=== PATIENT | female | born 1935 | race Caucasian/White ===

== ENCOUNTER 2016-04-06 06:08 | Emergency (ER) | payer OTHER ==
[~2016-04-06] VITALS: Ht 154.9 cm; Wt 80.2 kg
[~2016-04-06 06:08] MED LIST: LEVOTHYROXINE75 MCG PO; PROTONIX40 MG PO
[2016-04-06] MEDS ORDERED: FLEXERIL10 MG PO (08:33)
[2016-04-06] MEDS ORDERED: TYLENOL WITH C1 EACH PO (08:33)
[2016-04-06 09:05] VITALS: BP 145/71
== END 2016-04-06 09:08 | disposition home or self-care (01) ==
LOC: EME 06:08
DX: M54.42 Lumbago with sciatica, left side (principal); M19.90 Unspecified osteoarthritis, unspecified site; E78.5 Hyperlipidemia, unspecified; E03.9 Hypothyroidism, unspecified
CPT/HCPCS: 72100; 99281; 99283

== ENCOUNTER 2017-02-26 08:11 | Observation (INO) | payer OTHER ==
[~2017-02-26] VITALS: Ht 152.4 cm; Wt 80.7 kg
[~2017-02-26 08:11] MED LIST changes: +CALICUM 500+D1 EACH PO; +FLEXERIL10 MG PO; +PANTOTHENIC AC500 MG PO; +PROZAC10 MG PO; +RED YEAST RICE600 MG PO; +TYLENOL WITH C1 EACH PO; +VITAMIN D-32000 UNI2 PO
[2017-02-26 08:58] LABS: EOSINOPHIL (%) 2.4 % (0-5); EOSINOPHIL COUNT 0.2 K/uL (0-0.3); HEMATOCRIT 40.9 % (36.0-46.0); IMMATURE GRANULOCYTE (%) 0.3 % (0.0-0.7); INSTRUMENT ABS NEUTROPHIL CT 4.6 K/uL; MCH 31.4 PG (29.0-34.0); MCHC 33.5 G/DL (30.0-36.0); MCV 93.8 FL (83-99); MEAN PLAT.VOLUME 10.3 uM^3 (9.5-12.4); MONOCYTE (%) 6.6 % (3-12); MONOCYTE COUNT 0.4 K/uL (0-0.8); NEUTROPHIL (%) 73.8 % (45-76); NEUTROPHIL COUNT 4.6 K/uL (1.8-6.4); PLATELET COUNT 180 K/uL (156-360); RBC DIS.WIDTH-CV 13.2 % (11.8-14.6); RBC DIS.WIDTH-SD 45.4 % (39-53); RED BLOOD COUNT 4.36 M/uL (3.80-5.20); WHITE BLOOD COUNT 6.2 K/uL (4.1-10.2)
[2017-02-26 09:07] LABS: CHLORIDE 105 mEq/L (99-109)
[2017-02-26 09:08] LABS: POTASSIUM 3.7 mEq/L (3.7-5.4); SODIUM 138 mEq/L (136-147)
[2017-02-26 09:10] LABS: GLUCOSE 121 mg/dL (70-99)
[2017-02-26 09:11] LABS: ANION GAP 7 MEQ/L (2-14)
[2017-02-26 09:12] LABS: TOTAL BILIRUBIN 0.9 mg/dL (0.0-1.0)
[2017-02-26 09:13] LABS: ALKALINE PHOSPHATASE 101 IU/L (3-129); GFR ESTIMATE (CALCULATED) > 59 mL/min/
[2017-02-26 09:15] LABS: UREA NITROGEN (BUN) 13 mg/dL (9-23)
[2017-02-26 09:17] LABS: LIPASE 513 U/L (1.0-51.0)
[2017-02-26 12:50] LABS: HDL CHOLESTEROL 44 MG/DL (Desirable>=50); LDL CHOLESTEROL 101 mg/dL (Desirable<100); NON-HDL CHOLESTEROL 123 mg/dL (Desirable<160); TOTAL CHOLESTEROL 167 mg/dL (Desirable<200); TRIGLYCERIDES 112 MG/DL (Normal: <150)
[2017-02-26] MEDS ORDERED: LEVOTHYROXINE50 MCG PO (13:23)
[2017-02-26] MEDS ORDERED: TYLENOL EXTRA500 MG PO (13:26)
[2017-02-26] MEDS ORDERED: NASACORT10.8 ML BOTH NARES (13:26)
[2017-02-26] MEDS ORDERED: RANITIDINE HCL300 MG PO (13:26)
[2017-02-26] MEDS ORDERED: ALAWAY10 ML BOTH EYES (13:27)
[2017-02-26] MEDS ORDERED: MUCINEX DM ER1 EACH PO ×2 (13:28→13:29)
[2017-02-26] MEDS ORDERED: TRETINOIN20 GM TP (13:29)
[2017-02-26 15:06] LABS: ADD MIUA? YES; BILIRUBIN NEGATIVE; BLOOD NEGATIVE; COLOR YELLOW ((YELLOW)); GLUCOSE (STRIP) NEGATIVE; KETONES NEGATIVE; LEUKOCYTES TRACE; NITRITE NEGATIVE; PROTEIN (STRIP) NEGATIVE; SPECIFIC GRAVITY 1.027 (1.000-1.030); UROBILINOGEN 0.2 MG/DL (0.2-1.0)
[2017-02-26 15:19] LABS: BACTERIA RARE /HPF; EPITHELIAL CELLS RARE /HPF; MUCUS NONE SEEN /LPF; RED BLOOD CELLS 0-5 /HPF (0-5); UCUL ADDED? NO; UNCLASSIFIED CRYSTALS 2+ /HPF; WHITE BLOOD CELLS 0-5 /HPF (0-5)
[2017-02-26 17:30] VITALS: BP 161/87
[2017-02-26 19:25] VITALS: BP 144/65
[2017-02-26 23:40] VITALS: BP 118/58
[2017-02-27 08:10] LABS: ANION GAP 4 MEQ/L (2-14); CHLORIDE 109 MEQ/L (99-109); GFR ESTIMATE (CALCULATED) > 59 mL/min/; GLUCOSE 109 mg/dL (70-99); POTASSIUM 3.8 MEQ/L (3.7-5.4); SAMPLE HEMOLYSIS CHECK 0; SAMPLE ICTERIC CHECK 0; SAMPLE LIPEMIA CHECK 0; SODIUM 142 MEQ/L (136-147); UREA NITROGEN (BUN) 10 mg/dL (9-23)
[2017-02-27 08:25] VITALS: BP 126/60
[2017-02-27] MEDS ORDERED: ZOFRAN4 MG PO (13:12)
[2017-02-27 13:14] VITALS: BP 116/70
== END 2017-02-27 15:12 | disposition home or self-care (01) ==
LOC: EME 08:11 → EDOF 11:18 → 2EAST 11:18 → CANRESERV 11:24 → ENRESERV 11:24 → EDOF 12:22 → ENRESERV 14:13 → 2EAST 17:19
PROVIDERS: Internal Medicine; Physician Assistant
DX: K85.90 Acute pancreatitis without necrosis or infection, unspecified (principal); E03.9 Hypothyroidism, unspecified; E78.5 Hyperlipidemia, unspecified; M19.90 Unspecified osteoarthritis, unspecified site; Z90.49 Acquired absence of other specified parts of digestive tract
CPT/HCPCS: 74177; 80048; 80053; 80061; 81003; 83690; 85025; 87493; G0378; J1650; J7042; J7120; S0028